=== PATIENT | male | born 1990 | race Caucasian/White ===

== ENCOUNTER 2018-08-01 09:16 | Emergency (ER) | payer OTHER ==
[~2018-08-01] VITALS: Ht 177.8 cm; Wt 77.1 kg
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
[2018-08-01] MEDS ORDERED: NEO/POLY/BAC (NEOSPORIN) OINT 15 GM TUBE TOP STA (09:39)
[2018-08-01] MEDS ORDERED: TETANUS,DIPTH,PERTUSS P/F (BOOSTRIX) 0.5 ML VIAL IM ONE (09:45)
[2018-08-01] MEDS ORDERED: ACETAMINOPHEN 325 MG TABLET PO ONE (09:45)
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
[2018-08-01] MEDS ORDERED: CYCL5TAB PO (11:13)
[2018-08-01] MEDS ORDERED: IBUP-1780 PO (11:13)
[2018-08-01 11:38] VITALS: BP 122/75
== END 2018-08-01 11:38 | disposition home or self-care (01) ==
LOC: ER FS 09:20
DX: S05.12XA Contusion of eyeball and orbital tissues, left eye, initial encounter (principal); M25.512 Pain in left shoulder; Z23 Encounter for immunization; V20.4XXA Motorcycle driver injured in collision with pedestrian or animal in traffic accident, initial encounter
CPT/HCPCS: 70450; 70486; 73030; 90471; 90715